=== PATIENT | female | born 1970 | race Caucasian/White ===

== ENCOUNTER 2017-10-01 08:51 | Emergency (ER) | payer OTHER, SELFPAY ==
[2017-10-01 09:11] VITALS: BP 106/68; PULSE 93; RESP 18; TEMP 36.9; BMI 21.1
--- NOTE | 2017-10-01 09:24 | ED.LOWEXIN ---
HPI - Extremity Injury (Lower) General Chief Complaint: Extremity Injury, Lower Stated Complaint: SI joint pain/Left knee pain/middle finger swollen Time Seen by Provider: 10/01/17 09:00 Source: patient Mode of arrival: ambulatory Limitations: no limitations History of Present Illness HPI Narrative: 47-year-old female with a history of Maddison's thyroiditis and other ???autoimmune problems ???here for evaluation of right sacroiliac joint pain which she has had for some time now and has been under the care of physical therapy in the past. Also here for right middle finger swelling that she said started this morning. No trauma. Also has left knee pain. No swelling no trauma. No history of gout. Has had no issues with joint pain in the past. Recently was diagnosed with a upper respiratory infection and was given Omnicef for 10 days by her primary doctor. Also took 5 days of 20 mg of prednisone and then also had a refill of this and took the 1st dose of a 2nd 5 days of this medication this morning. No fevers. Still having a cough. Related Data Home Medications Medication Instructions Recorded Confirmed thyroid (pork) [Westhroid] 65 mg PO QDAY@0600 #0 05/21/16 Previous Rx's Medication Instructions Recorded hydrocodone-acetaminophen 1 tab PO Q6H PRN #7 tab 10/01/17 prednisone See Label Instructions .ROUTE 10/01/17 .COMPLEX #43 tab Allergies Allergy/AdvReac Type Severity Reaction Status Date / Time Quinolones Allergy Severe ANAPHYLAXIS Verified 10/01/17 09:16 Penicillins [PENICILLINS] AdvReac Unknown intractable Verified 10/01/17 09:16 vomiting. Review of Systems Constitutional Denies chills, Denies fever(s), Denies lethargy and Denies weakness Eyes Denies change in vision, Denies eye discharge, Denies irritation, Denies itchy eyes and Denies loss of vision ENT Ears, Nose, Mouth, and Throat: Denies throat swelling and Denies tongue swelling Cardiovascular Denies dyspnea Respiratory Denies change in phlegm color, Reports cough, Denies pain on inspiration, Denies dyspnea and Denies wheezing Gastrointestinal Gastrointestinal: Denies abdominal pain, Denies change in bowel habits, Denies diarrhea, Denies nausea and Denies vomiting Musculoskeletal Comments: Left knee pain Swelling pain to her right middle finger Integumentary/Breasts Comments: Swelling to right middle finger with some redness worsening from yesterday Neurologic Denies loss of vision and Denies weakness Hematologic/Lymphatic Denies easy bruising Allergic/Immunologic Denies urticaria, Denies itchy eyes, Denies throat swelling, Denies tongue swelling and Denies wheezing [facility] Social History Smoking Status: Never smoker Exam Initial Vital Signs Initial Vital Signs: Vital Signs Temperature 98.5 F 10/01/17 09:11 Pulse Rate 93 H 10/01/17 09:11 Respiratory Rate 18 10/01/17 09:11 Blood Pressure 106/68 10/01/17 09:11 Resp Effort & Inspection: normal respiratory effort, able to speak in complete sentences, no respiratory distress and no use of accessory muscles Auscultation: clear to auscultation bilaterally, no rales, no rhonchi and no wheezes Cardio Rate: regular rate Rhythm: regular rhythm Heart Sounds: no click, no gallops, no murmurs and no rubs Pulses: normal peripheral pulses Skin Other: Minimal redness over the PIP joint of right middle finger Neuro Other: Sensation intact to light touch right hand and left lower extremity and right lower extremity Extrem Other: Patient with tenderness to palpation over the right SI joint and movement of the right hip Tenderness to palpation with minimal if any swelling to the left knee. Ligamentously intact. Tenderness to palpation over the PIP joint of the right middle finger with swelling and limited range of motion secondary to the swelling Rest of the right hand exam unremarkable Course Vital Signs - 8 hr 10/01/17 09:11 Temperature 98.5 F Pulse Rate 93 H Respiratory Rate 18 Blood Pressure 106/68 MDM - Extremity Injury (Lower) [facility] Narrative Medical decision making narrative: No signs of trauma. Does have swelling to the right middle finger. No history of gout. This does not appear infectious. Secondary to her history I suspect it is an inflammatory reaction. Also has pain to the left knee. Again no trauma. Has a relatively benign exam except for tenderness to palpation. No signs of infection. Has her normal right SI joint pain that has worsened. Patient is concerned that she has not been on a high enough for long enough dose of steroids. Will hold on x-rays for now. No skin symptoms. No mucous membrane involvement. No indication for antibiotics. Will increase her dose of prednisone per her request. Will also give medications for pain control. She was instructed that she needed to contact her primary care doctor for a follow-up in further workup for autoimmune issues as needed. She was given return precautions. She expressed understanding and agreement with plan Discharge Plan Departure Patient Disposition: Home, Self-Care Clinical Impression: Arthralgia Instructions: Steroids: Bigger Is Not Better, DI for Arthralgia Activity Restrictions/Additional Instructions: Take all of your medications as instructed. Contact your primary care doctor for a follow-up. Return to the emergency department for any new symptoms, fevers, rashes or any other concerning symptoms Prescriptions: New hydrocodone-acetaminophen 5-325 mg tablet 1 tab PO Q6H PRN (Reason: pain) Qty: 7 RF: 0 prednisone 20 mg tablet See Label Instructions .ROUTE .COMPLEX Qty: 43 RF: 0 No Action thyroid (pork) [Westhroid] 65 MG tablet 65 mg PO QDAY@0600 Qty: 0 RF: 0
[2017-10-01] MEDS: HYDROCODONE/ACET 5/325 TABLET 1 TAB PO (09:31)
[2017-10-01 09:55] VITALS: BP 105/63; PULSE 81; RESP 16; O2SAT 100
== END 2017-10-01 10:03 | disposition home or self-care (01) ==
PROVIDERS: Emergency Provider Emergency Medicine
DX: M25.50 Pain in unspecified joint (principal)
CPT/HCPCS: 99282; 99283

== ENCOUNTER → 2018-11-16 14:29 | Outpatient (CLI) | payer OTHER, SELFPAY ==
--- NOTE | 2018-11-16 | DI.US.S_ITS ---
PROCEDURE: US PELVIC COMPLETE INDICATIONS: OTHER SPECIFIED NONINFLAMMATORY DISORDERS OF UTERUS TECHNIQUE: Real-time scanning was performed of the pelvic organs, with image documentation. Additional endovaginal scanning was necessary due to incomplete visualization of the adnexal and endometrial structures by transabdominal scanning. COMPARISON: None. FINDINGS: Transabdominal scanning: Limited scanning through the kidneys shows no hydronephrosis. No pathologic free abdominal or pelvic fluid. Endovaginal scanning: Uterus: Uterus is enlarged in size at 8.7 x 4.0 x 7.6 cm. The endometrium measures 4.0 mm in combined thickness. Anterior intramural fibroid measuring 8.2 x 5.2 x 8.2 cm. Ovaries: Right are not visualized. Left ovary is normal measuring 3.4 x 1.9 x 2.2 cm. IMPRESSION: 8.2 cm intramural fibroid. Dictated by: Frankie ECHEVARRIA Interpreted: Ronn Keith MD on 11/16/2018 at 16:38 Approved by: Ronn Keith M.D. on 11/16/2018 at 17:31
== END ==
PROVIDERS: Visit Provider Nurse Practitioner Family
DX: N85.8 Other specified noninflammatory disorders of uterus (principal); D25.1 Intramural leiomyoma of uterus
CPT/HCPCS: 76830; 76856

== ENCOUNTER → 2018-12-04 11:55 | Outpatient (CLI) | payer OTHER, SELFPAY ==
--- NOTE | 2018-12-04 | DI.MG.S_ITS ---
BILATERAL DIGITAL SCREENING MAMMOGRAM 3D/2D WITH CAD: 12/04/2018 CLINICAL: Routine screening. Comparison is made to exam dated: [facility] The tissue of both breasts is extremely dense, which lowers the sensitivity of mammography. Current study was also evaluated with a Computer Aided Detection (CAD) system. There is an oval asymmetry in the right breast posterior depth central to the nipple seen on the craniocaudal view only. Finding is best noted on tomographic CC slice 6/55. No correlate is identified on comparison mammogram. There is an oval asymmetry in the left breast subareolar depth central to the nipple seen on the craniocaudal view only. No other significant masses, calcifications, or other findings are seen in either breast. IMPRESSION: INCOMPLETE: NEEDS ADDITIONAL IMAGING EVALUATION 1) There is an oval asymmetry in the right breast posterior depth central to the nipple seen on the craniocaudal view only is indeterminate. Additional views with possible ultrasound are recommended. 2) There is an oval asymmetry in the left breast subareolar depth central to the nipple seen on the craniocaudal view only is indeterminate. Additional views with possible ultrasound are recommended. This exam was interpreted at Station ID: [id number]. NOTE: For mammograms, a report in lay terms will be sent to the patient. Approximately 15% of breast malignancies will not be visualized mammographically. In the management of a palpable breast mass, a negative mammogram must not discourage biopsy of a clinically suspicious lesion. Electronically Signed By: Gerard Cristina M.D. ecl/:12/04/2018 12:54:41 letter sent: Additional Imaging Needed ACR BI-RADS Category 0: Incomplete [id number]
== END ==
PROVIDERS: Visit Provider Nurse Practitioner Family
DX: Z12.31 Encounter for screening mammogram for malignant neoplasm of breast (principal)
CPT/HCPCS: 77063; 77067

== ENCOUNTER → 2018-12-20 14:38 | Outpatient (CLI) | payer OTHER, SELFPAY ==
--- NOTE | 2018-12-20 | DI.US.S_ITS ---
LIMITED ULTRASOUND OF LEFT BREAST AND AXILLA: 12/20/2018 CLINICAL: Patient returns today to evaluate an asymmetry in the left breast. Comparison is made to exams dated: 12/20/2018 mammogram, 12/04/2018 mammogram - [facility], and 03/26/2013 mammogram - [facility]. Color flow and real-time ultrasound of the left breast 6 o'clock, 12 o'clock, retroareolar, and axilla regions were performed. Hendrickson scale images of the real-time examination were reviewed. There is a 0.5 x 0.4 x 0.4 cm oval indistinct hypoechoic probable complicated cyst in the left breast at 12:00 position 3 cm from the nipple with low level internal echogenic foci, mild posterior acoustic enhancement, and no internal vascularity on Doppler ultrasound. Targeted ultrasound of the left axilla demonstrates no axillary lymphadenopathy. This may correlate with mammography findings. IMPRESSION: PROBABLY BENIGN 1) 0.5 cm probable complicated cyst in the left breast at 12:00 position 3 cm from the nipple. A follow-up mammogram and an ultrasound in 6 months is recommended to demonstrate stability. The patient is advised to monitor her breasts and to return sooner for re-evaluation should she feel anything grow or change. 2) No ultrasound evidence of left axillary lymphadenopathy. This exam was interpreted at Station ID: [id number]. Electronically Signed By: Gerard Cristina M.D. ecl/:12/20/2018 16:47:13 letter sent: Followup Recommended Ultrasound BI-RADS: 3 Probably benign
--- NOTE | 2018-12-20 | DI.MG.S_ITS ---
BILATERAL DIGITAL DIAGNOSTIC MAMMOGRAM 3D/2D WITH ADDITIONAL VIEWS: 12/20/2018 CLINICAL: Additional evaluation requested from prior study. Comparison is made to exams dated: 12/04/2018 [facility] and 03/26/2013 mammogram - [facility]. The tissue of both breasts is extremely dense, which lowers the sensitivity of mammography. Previously identified oval asymmetry in the right breast posterior depth central to the nipple seen on the craniocaudal view only on comparison screening mammograms of 12/04/18 persists with additional views and localizes to the inferior right breast at 6:00 position posterior depth on additional views. Previously identified oval asymmetry in the left breast subareolar depth central to the nipple seen on the craniocaudal view only on comparison screening mammograms of 12/04/18 persists with additional views. IMPRESSION: INCOMPLETE: NEEDS ADDITIONAL IMAGING EVALUATION Previously identified oval asymmetry in the right breast posterior depth central to the nipple seen on the craniocaudal view only on comparison screening mammograms of 12/04/18 persists with additional views and localizes to the inferior right breast at 6:00 position posterior depth on additional views. A targeted ultrasound is recommended for further evaluation, and will be performed immediately following this exam. Previously identified oval asymmetry in the left breast subareolar depth central to the nipple seen on the craniocaudal view only on comparison screening mammograms of 12/04/18 persists with additional views. A targeted ultrasound is recommended for further evaluation, and will be performed immediately following this exam. This exam was interpreted at Station ID: [id number]. NOTE: For mammograms, a report in lay terms will be sent to the patient. Approximately 15% of breast malignancies will not be visualized mammographically. In the management of a palpable breast mass, a negative mammogram must not discourage biopsy of a clinically suspicious lesion. Electronically Signed By: Gerard Cristina M.D. ecl/:12/20/2018 16:48:19 ACR BI-RADS Category 0: Incomplete [id number]
--- NOTE | 2018-12-20 | DI.US.S_ITS ---
LIMITED ULTRASOUND OF RIGHT BREAST AND AXILLA: 12/20/2018 CLINICAL: Patient returns today to evaluate an asymmetry in the right breast. Comparison is made to exams dated: 12/20/2018 mammogram - [facility], 03/26/2013 mammogram - [facility], and 12/04/2018 [facility] - [facility]. Color flow and real-time ultrasound of the right breast 6 o'clock, 12 o'clock, retroareolar, and axilla regions were performed. Hendrickson scale images of the real-time examination were reviewed. There is a 0.6 x 0.4 x 0.3 cm oval indistinct centrally hyperechoic and peripherally hypoechoic probable intramammary lymph node in the right breast at 6:30 position 5 cm from the nipple. This demonstrates no internal vascularity on Doppler ultrasound. This may correlate with findings seen on comparison mammography. Targeted ultrasound of the right axilla demonstrates no right axillary lymphadenopathy. Targeted ultrasound of the right axillary tail demonstrates a 0.7 x 0.6 x 0.4 cm oval circumscribed peripherally hypoechoic and centrally hyperechoic benign-appearing intramammary lymph node at the 10:00 position 7 cm from nipple, with preserved fatty hilum, no suspicious cortical thickening, and expected mild hilar vascularity on Doppler ultrasound. IMPRESSION: PROBABLY BENIGN 1) 0.6 cm probable intramammary lymph node in the right breast at 6:30 position 5 cm from the nipple. A follow-up mammogram and an ultrasound in 6 months is recommended to demonstrate stability. The patient is advised to monitor her breasts and to return sooner for re-evaluation should she feel anything grow or change. 2) No right axillary lymphadenopathy. This exam was interpreted at Station ID: [id number]. Electronically Signed By: Gerard Cristina M.D. ecl/:12/20/2018 16:53:49 letter sent: Followup Recommended Ultrasound BI-RADS: 3 Probably benign
== END ==
PROVIDERS: Visit Provider Nurse Practitioner Family
DX: R92.8 Other abnormal and inconclusive findings on diagnostic imaging of breast (principal); N64.89 Other specified disorders of breast
CPT/HCPCS: 76642; 77066; G0279

== ENCOUNTER → 2019-08-07 12:36 | Outpatient (CLI) | payer OTHER, SELFPAY ==
--- NOTE | 2019-08-07 12:43 | DI.MG.S_ITS ---
BILATERAL DIGITAL DIAGNOSTIC MAMMOGRAM 3D/2D SHORT-TERM FOLLOW-UP: 08/07/2019 CLINICAL: Short term follow up for bilateral breasts. Comparison is made to exams dated: 12/20/2018 ultrasound, 12/20/2018 ultrasound, 12/20/2018 mammogram, and 12/04/2018 mammogram - [facility]. The tissue of both breasts is extremely dense, which lowers the sensitivity of mammography. The asymmetry in the right breast posterior depth central to the nipple seen on the craniocaudal view only is less prominent on additional views. The asymmetry in the left breast anterior depth central to the nipple seen on the craniocaudal view only is no longer seen. No other significant masses or calcifications are seen in either breast. IMPRESSION: INCOMPLETE: NEEDS ADDITIONAL IMAGING EVALUATION The irregular asymmetry in the right breast posterior depth central to the nipple seen on the craniocaudal view only is indeterminate. An ultrasound is recommended to further characterize the previously seen asymmetry in the left breast anterior depth central to the nipple, which is not seen on the current study. Additionally, previous ultrasound findings on the prior study will be evaluated. A targeted ultrasound of the bilateral breasts is recommended and will be performed immediately following this exam. This exam was interpreted at Station ID: [id number]. NOTE: For mammograms, a report in lay terms will be sent to the patient. Approximately 15% of breast malignancies will not be visualized mammographically. In the management of a palpable breast mass, a negative mammogram must not discourage biopsy of a clinically suspicious lesion. Electronically Signed By: Kathy Doty M.D. lk/:08/07/2019 13:47:00 ACR BI-RADS Category 0: Incomplete [id number]
--- NOTE | 2019-08-07 12:44 | DI.US.S_ITS ---
ULTRASOUND OF LEFT BREAST: 08/07/2019 CLINICAL: 6 month follow-up of cysts. Comparison is made to exams dated: 08/07/2019 mammogram, 12/20/2018 ultrasound, 12/20/2018 mammogram, 12/04/2018 mammogram - [facility], and 03/26/2013 mammogram - [facility]. Color flow ultrasound of the left breast was performed on the areas of interest. Hendrickson scale images of the real-time examination were reviewed. The cyst in the left breast central to the nipple anterior depth seen on the prior mammogram and ultrasound dated 12/20/18 is no longer seen by mamogram or ultrasound. IMPRESSION: BENIGN There is no sonographic evidence of malignancy. A 1 year screening mammogram is recommended. This exam was interpreted at Station ID: [id number]. Electronically Signed By: Kathy Doty M.D. lk/:08/07/2019 14:12:13 letter sent: Normal Exam Ultrasound BI-RADS: 2 Benign
--- NOTE | 2019-08-07 12:44 | DI.US.S_ITS ---
ULTRASOUND OF RIGHT BREAST: 08/07/2019 CLINICAL: 6 month follow-up of cysts. Comparison is made to exams dated: 08/07/2019 mammogram, 12/20/2018 ultrasound, 12/20/2018 mammogram, 12/04/2018 mammogram - [facility], and 03/26/2013 mammogram - [facility]. Color flow and real-time ultrasound of the right breast were performed on the areas of interest. Hendrickson scale images of the real-time examination were reviewed. There is a stable complicated cyst in the right breast at 6 o'clock anterior depth. This likely correlates with mammography findings. The right axilla was interogated and normal appearing lymph nodes are visualized. IMPRESSION: PROBABLY BENIGN The stable complicated cyst in the right breast is probably benign. A follow-up right mammogram and an ultrasound in 6 months is recommended to demonstrate stability. This exam was interpreted at Station ID: [id number]. Electronically Signed By: Kathy dykes/:08/07/2019 14:10:10 letter sent: Followup Recommended Ultrasound BI-RADS: 3 Probably benign
== END ==
PROVIDERS: PCP Nurse Practitioner Family; Referring Provider Nurse Practitioner Family; Visit Provider Nurse Practitioner Family
DX: R92.8 Other abnormal and inconclusive findings on diagnostic imaging of breast (principal); N60.01 Solitary cyst of right breast
CPT/HCPCS: 76642; 77066; G0279

== ENCOUNTER → 2024-03-28 11:27 | Outpatient (CLI) | payer OTHER, SELFPAY ==
--- NOTE | 2024-03-28 11:28 | DI.MG.S_ITS ---
BILATERAL DIGITAL SCREENING MAMMOGRAM 3D/2D WITH CAD: 03/28/2024 CLINICAL: Routine screening. Comparison is made to exams dated: 08/07/2019 mammogram, 12/20/2018 mammogram, and 12/04/2018 mammogram - [facility]. The breasts are extremely dense, which lowers the sensitivity of mammography (category d />75% glandular tissue). Current study was also evaluated with a Computer Aided Detection (CAD) system. No significant masses, calcifications, or other findings are seen in either breast. There has been no significant interval change. The previously seen complicated cyst in the right breast is no longer seen. IMPRESSION: NEGATIVE There is no mammographic evidence of malignancy. A 1 year screening mammogram is recommended. Based on Tyrer-Cuzick model (a risk assessment model), the patient's lifetime risk is 20.8% and her 10 year risk is 5.4%. If a patient has an elevated risk, a more comprehensive evaluation should be considered and/or a referral to a genetic counselor. The [place] [employer], [place] [employer], and NCCN Guidelines advise the consideration of Breast MRI as an adjunct to screening mammography in patients whose Lifetime risk to develop breast cancer is 20% or higher. This exam was interpreted at Station ID: [id number]. NOTE: For mammograms, a report in lay terms will be sent to the patient. Approximately 15% of breast malignancies will not be visualized mammographically. In the management of a palpable breast mass, a negative mammogram must not discourage biopsy of a clinically suspicious lesion. Electronically Signed By: Sohan Roberts M.D. [facility]/:03/28/2024 17:44:52 letter sent: Normal Exam ACR BI-RADS Category 1: Negative
== END ==
PROVIDERS: PCP Family Medicine; Referring Provider Family Medicine; Visit Provider Family Medicine
DX: Z12.31 Encounter for screening mammogram for malignant neoplasm of breast (principal); R92.323 Mammographic fibroglandular density, bilateral breasts
CPT/HCPCS: 77063; 77067

== ENCOUNTER → 2024-05-10 11:01 | Outpatient (CLI) | payer OTHER, SELFPAY ==
--- NOTE | 2024-05-10 11:02 | DI.MRI.S_ITS ---
BREAST MRI OF BOTH BREASTS: 05/10/2024 CLINICAL: High risk screening. PROCEDURE: MR BREAST BI WO/W CON INDICATIONS: dense breast tissue, 20.8% lifetime risk of breath cancer TECHNIQUE: The patient was placed prone in a dedicated breast imaging coil. Precontrast axial STIR and 3D FLASH without fat saturation sequences were obtained. Both before and after bolus injection of contrast, sequential 1-minute axial 3D FLASH with fat saturation sequences for 3 time points, with subtraction images and maximum intensity projections (MIP's) generated. Delayed sagittal FLASH images with fat saturation were also obtained. Computer-aided detection, including computer algorithm analysis of MRI image data for lesion detection and characterization, pharmacokinetic analysis, with further physician review for interpretation, was performed. COMPARISON: Mammogram 03/28/2024 FINDINGS: Image quality: Diagnostic. There is extreme amount of fibroglandular tissue. There is moderate symmetric background parenchymal enhancement. Right breast: There is no suspicious enhancement or lymphadenopathy. Left breast: There is no suspicious enhancement or lymphadenopathy. IMPRESSION: NEGATIVE No MRI evidence of malignancy. Recommend continue routine annual screening. Future imaging is recommended as follows: 03/29/2025 screening mammogram. This exam was interpreted at Station ID: [id number]. Electronically Signed By: Tala Raza M.D., Ph.D. eb/:05/13/2024 04:09:14 letter sent: Normal Exam ACR BI-RADS Category 1: Negative
== END ==
PROVIDERS: PCP Family Medicine; Referring Provider Family Medicine; Visit Provider Family Medicine
DX: R92.30 Dense breasts, unspecified (principal); Z91.89 Other specified personal risk factors, not elsewhere classified; Z12.39 Encounter for other screening for malignant neoplasm of breast
CPT/HCPCS: 77049; A9579